=== PATIENT | female | born 1960 | race Caucasian/White ===

== ENCOUNTER 2022-10-24 12:17 | Emergency (ER) | payer MEDICAID, OTHER ==
[~2022-10-24] VITALS: Ht 160 cm; Wt 63.6 kg
[2022-10-24 12:25] VITALS: BP 151/106; PULSE 81; RESP 16; TEMP 97.9; O2SAT 98
== END 2022-10-24 13:27 | disposition home or self-care (01) ==
LOC: ER 12:18
DX: M25.522 Pain in left elbow (principal); Z00.8 Encounter for other general examination; W19.XXXA Unspecified fall, initial encounter; Y93.89 Activity, other specified; Y92.89 Other specified places as the place of occurrence of the external cause; Y99.8 Other external cause status
CPT/HCPCS: 99284

== ENCOUNTER 2023-11-12 20:04 | Emergency (ER) | payer MEDICAID ==
[~2023-11-12] VITALS: Ht 160 cm; Wt 63.3 kg
[2023-11-12 20:29] VITALS: PULSE 101; RESP 20; O2SAT 98
[2023-11-12] MEDS ORDERED: SULF1TAB49 PO (21:25)
[2023-11-12] MEDS ORDERED: METR-159 PO (21:25)
[2023-11-12] MEDS ORDERED: CLOT30CR19 TOP (21:26)
[2023-11-12 21:29] VITALS: BP 165/75; TEMP 98.1
== END 2023-11-12 21:35 | disposition home or self-care (01) ==
LOC: ER 20:05
DX: L29.3 Anogenital pruritus, unspecified (principal); Z72.89 Other problems related to lifestyle
CPT/HCPCS: 99283

== ENCOUNTER 2024-01-30 11:59 | Emergency (ER) | payer MEDICAID ==
[~2024-01-30] VITALS: Ht 160 cm; Wt 57.1 kg
[~2024-01-30 11:59] MED LIST: CLOT30CR19 TOP
[2024-01-30] MEDS: acetaminophen 325mg tablet PO ONE (13:11)
[2024-01-30] MEDS: ketorolac trometh 15mg/ml vial 15 MG/ML ML IM ONE (13:12)
[2024-01-30] MEDS ORDERED: HYDR-3964 PO (13:33)
[2024-01-30] MEDS ORDERED: NAPR-56 PO (13:33)
[2024-01-30 14:09] VITALS: BP 148/88; PULSE 68; RESP 16; TEMP 97.9; O2SAT 99
== END 2024-01-30 14:11 | disposition home or self-care (01) ==
LOC: ER 12:00
DX: S82.892A Other fracture of left lower leg, initial encounter for closed fracture (principal); Z79.2 Long term (current) use of antibiotics; X58.XXXA Exposure to other specified factors, initial encounter; Y93.89 Activity, other specified; Y92.89 Other specified places as the place of occurrence of the external cause; Y99.8 Other external cause status
CPT/HCPCS: 73610; 96372; 99284; J1885; L4360